=== PATIENT | male | born 1935 | race Caucasian/White ===

== ENCOUNTER 2020-03-01 13:24 | Emergency (ER) | payer MEDICARE, OTHER ==
--- NOTE | 2020-03-01 14:50 | CT ---
PROCEDURE INFORMATION: Exam: CT Cervical Spine Without Contrast Exam date and time: 03/01/2020 2:08 PM Age: 84 years old Clinical indication: Pain and injury or trauma; Fall; Blunt trauma; Neck pain TECHNIQUE: Imaging protocol: Computed tomography images of the cervical spine without contrast. Radiation optimization: All CT scans at this facility use at least one of these dose optimization techniques: automated exposure control; mA and/or kV adjustment per patient size (includes targeted exams where dose is matched to clinical indication); or iterative reconstruction. COMPARISON: No relevant prior studies available. FINDINGS: Bones/joints: There is no evidence of acute fracture. Discs/Spinal canal/Neural foramina: The cervical spine demonstrates moderate degenerative changes at multiple levels. The facet joints demonstrate moderate degenerative narrowing and sclerosis. Disc space narrowing and bilateral neural foraminal narrowing noted at C2-C3, C3-C4 , C4- C5 and C5-C6. Soft tissues: There are no soft tissue masses or fluid collections. Lungs: Lung apices are normal. Vasculature: The vasculature demonstrates diffuse mild atherosclerotic calcification. IMPRESSION: 1. The cervical spine demonstrates moderate degenerative changes at multiple levels. 2. No evidence of acute fracture. Thank you for allowing us to participate in the care of your patient. Dictated and Authenticated by: Victor Manuel Fitch DO 03/01/2020 3:36 PM Central Time ([place] & [place]) [facility]
--- NOTE | 2020-03-01 14:54 | CT ---
Addendum created by Victor Manuel Fitch DO on 03/01/2020 3:43 PM Central Time ([place] & [place]): THIS REPORT CONTAINS FINDINGS THAT MAY BE CRITICAL TO PATIENT CARE. The findings were verbally communicated via telephone conference at 3:42 PM JBOSS DEVELOPER on 03/01/2020 with CLARIBEL BRYAN. The findings were acknowledged and understood. Initial Report created on 03/01/2020 3:34 PM Central Time ([place] & [place]): PROCEDURE INFORMATION: Exam: CT Head Without Contrast Exam date and time: 03/01/2020 2:08 PM Age: 84 years old Clinical indication: Injury or trauma; Fall; Laceration; Consciousness not specified; Without residual foreign body; Forehead; Mass, lump, or localized swelling; Head or scalp TECHNIQUE: Imaging protocol: Computed tomography of the head without contrast. Radiation optimization: All CT scans at this facility use at least one of these dose optimization techniques: automated exposure control; mA and/or kV adjustment per patient size (includes targeted exams where dose is matched to clinical indication); or iterative reconstruction. COMPARISON: CT Head wo Cont 10/31/2018 11:53 AM FINDINGS: Brain: Right temporoparietal subdural hematoma is present measuring up to 5 mm in width. Small right temporoparietal parenchymal hematoma present. Age-related atrophy and chronic white matter ischemic changes, with no evidence of an acute intracranial abnormality. No mass effect or midline shift. 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 Cerebral ventricles: No ventriculomegaly. Bones/joints: There is a fracture of the right inferior orbital rim present. There is a fracture of the right zygomatic arch. Paranasal sinuses: Hyperdense air-fluid level present within the right maxillary sinus with fractures of the anterior and posterior ritter of the sinus present. Mastoid air cells: Visualized mastoid air cells are well aerated. Vasculature: The vasculature demonstrates diffuse mild atherosclerotic calcification. Soft tissues: Moderate right periorbital soft tissue swelling. IMPRESSION: 1. Right temporoparietal subdural hematoma is present measuring up to 5 mm in width. 2. Small right temporoparietal parenchymal hematoma present. 3. There is a fracture of the right inferior orbital rim present. 4. There is a fracture of the right zygomatic arch. 5. Age-related atrophy and chronic white matter ischemic changes, with no evidence of an acute intracranial abnormality. 6. No mass effect or midline shift. 7. Hyperdense air-fluid level present within the right maxillary sinus with fractures of the anterior and posterior ritter of the sinus present. 8. Moderate right periorbital soft tissue swelling. An acute air-fluid levels present within the sphenoid sinuses bilaterally. Thank you for allowing us to participate in the care of your patient. Dictated and Authenticated by: Victor Manuel Fitch DO 03/01/2020 3:34 PM Central Time ([place] & [place]) [facility]
[2020-03-01] MEDS ORDERED: Sodium Chloride 0.9% 10 ML Syringe FLUSH PRN (15:11)
--- NOTE | 2020-03-01 15:57 | CT ---
PROCEDURE INFORMATION: Exam: CT Maxillofacial Without Contrast Exam date and time: 03/01/2020 2:45 PM Age: 84 years old Clinical indication: Injury or trauma; Fracture, traumatic; Closed fracture; Not specified; Injury date: 03/01/2020; Injury details: Fall and right sided facial bone fractures; Patient HX: Fall and right side facial fractures TECHNIQUE: Imaging protocol: Computed tomography images of the face without contrast. Radiation optimization: All CT scans at this facility use at least one of these dose optimization techniques: automated exposure control; mA and/or kV adjustment per patient size (includes targeted exams where dose is matched to clinical indication); or iterative reconstruction. COMPARISON: No relevant prior studies available. FINDINGS: Orbital cavity: Orbits are normal. Globes are unremarkable. Bones/joints: There is an infraorbital fracture noted on the right. No evidence of muscular entrapment. Fractures of the anterior and posterior ritter of the right maxillary sinus present. Slight right to left nasal septal deviation. Fracture of the right lateral orbital wall. Fracture of the right zygomatic arch is present. Paranasal sinuses: There is opacification of the right maxillary sinus with hyperdense fluid, likely related to hemorrhage. Acute air-fluid level present within the left and right sphenoid sinuses. Small air-fluid levels present within the ethmoid air cells. Soft tissues: Right periorbital soft tissue swelling and hematoma present. IMPRESSION: 1. There is an infraorbital fracture noted on the right. No evidence of muscular entrapment. 2. Fractures of the anterior and posterior ritter of the right maxillary sinus present. 3. There is opacification of the right maxillary sinus with hyperdense fluid, likely related to hemorrhage. 4. Right periorbital soft tissue swelling and hematoma present. 5. Fracture of the right zygomatic arch is present. 6. Acute air-fluid level present within the left and right sphenoid sinuses. THIS REPORT CONTAINS FINDINGS THAT MAY BE CRITICAL TO PATIENT CARE. The findings were verbally communicated via telephone conference at 3:42 PM LOCOMOTIVE ENGINEER on 03/01/2020 with CLARIBEL BRYAN. The findings were acknowledged and understood. Thank you for allowing us to participate in the care of your patient. Dictated and Authenticated by: Victor Manuel Fitch DO 03/01/2020 4:16 PM Central Time ([place] & [place]) [facility]
[2020-03-01] MEDS ORDERED: Ondansetron 4 MG/2 ML SDV IVPUSH ONE (16:21)
--- NOTE | 2020-03-01 16:56 | EDM.PDOC ---
ED HPI GENERAL MEDICAL PROBLEM - General Chief Complaint: Head Injury Stated Complaint: [facility] Time Seen by Provider: 03/01/20 13:31 Source of Information: Reports: Patient, EMS, Family History Limitations: Reports: No Limitations - History of Present Illness INITIAL COMMENTS - FREE TEXT/NARRATIVE: The patient presents by [facility] for a fall. The patient missed a couple steps and fell and hit his head on some concrete. He did not have a LOC but he does not remember what happened. He has swelling to his right orbit and an abrasion. He has a headache. His is in full c-spine precautions with a c- collar and back board. He has no neck pain. He has no chest pain, shortness of breath, abdominal pain, fever, chills, cough, congestion, runny nose, numbness or weakness. The patient is on aspirin and no other blood thinner. Onset: Sudden Duration: Minutes: Location: Reports: Head Quality: Reports: Sharp Severity: Moderate Improves with: Reports: None Worsens with: Reports: None Associated Symptoms: Reports: Headaches. Denies: Chest Pain, Cough, Fever/Chills, Nausea/Vomiting, Shortness of Breath Headache Pain Score (Numeric/FACES): 3 - Related Data Allergies Allergy/AdvReac Type Severity Reaction Status Date / Time No Known Allergies Allergy Verified 03/01/20 13:34 Home Meds: Home Meds Aspirin 81 mg PO DAILY 10/31/18 [History] Fish Oil/[place]-3 Fatty Acids [Fish Oil 1,000 MG] 1,000 mg PO DAILY 10/31/18 [History] Gabapentin [Neurontin] 300 mg PO DAILY 10/31/18 [History] Magnesium Chloride [Slow-Mag] 71.5 mg PO DAILY #30 tablet.dr 10/31/18 [Rx] Metoprolol Tartrate 50 mg PO BID 10/31/18 [History] Multivitamin with Minerals [Multiple Vitamin] 1 tab PO DAILY 10/31/18 [History] Omeprazole 20 mg PO DAILY 10/31/18 [History] Potassium Chloride 20 meq PO DAILY 30 Days #30 tablet.er 10/31/18 [Rx] Simvastatin 5 mg PO BEDTIME 10/31/18 [History] carBAMazepine [Carbamazepine] 200 mg PO DAILY PRN 10/31/18 [History] hydroCHLOROthiazide [Hydrochlorothiazide] 25 mg PO DAILY 10/31/18 [History] Past Medical History HEENT History: Reports: Impaired Vision Cardiovascular History: Reports: High Cholesterol, Hypertension Gastrointestinal History: Reports: GERD, Other (See Below) Musculoskeletal History: Reports: Osteoarthritis Oncologic (Cancer) History: Reports: Colon - Past Surgical History GI Surgical History: Reports: Cholecystectomy, Colostomy Social & Family History - Tobacco Use Tobacco Use Status *Q: Never Tobacco User - Caffeine Use Caffeine Use: Reports: None - Recreational Drug Use Recreational Drug Use: No - Living Situation & Occupation Living situation: Reports: Occupation: Retired ED ROS GENERAL - Review of Systems Review Of Systems: See Below Constitutional: Reports: No Symptoms HEENT: Reports: No Symptoms Respiratory: Reports: No Symptoms Cardiovascular: Reports: No Symptoms Endocrine: Reports: No Symptoms GI/Abdominal: Reports: No Symptoms : Reports: No Symptoms Musculoskeletal: Reports: No Symptoms Neurological: Reports: Headache ED EXAM, HEAD INJURY - Physical Exam Exam: See Below Exam Limited By: No Limitations General Appearance: Alert, No Apparent Distress Head: Other (Edema to the right orbital rim with an abrasion) Eyes: Bilateral Eye: EOMI Ears: Normal External Exam Nose: Normal Inspection Throat/Mouth: Normal Inspection Neck: Non-Tender, Normal Alignment, Normal Inspection Respiratory: No Respiratory Distress, Lungs Clear, Normal Breath Sounds Cardiovascular: Regular Rate, Rhythm, No Edema, No Murmur GI/Abdominal Exam: Soft, Non-Tender, No Organomegaly, No Mass Back Exam: Normal Inspection Extremities: Normal Inspection Course - Vital Signs Last Recorded V/S: Last Vital Signs Temp 96.8 F L 03/01/20 13:29 Pulse 71 03/01/20 16:19 Resp 18 03/01/20 13:29 BP 178/94 H 03/01/20 16:19 Pulse Ox 100 03/01/20 16:19 - Orders/Labs/Meds Orders: Active Orders 24 hr Category Date Time Status Cardiac Monitoring [RC] . DIRECTED Care 03/01/20 15:11 Active Peripheral IV Care [RC] . DIRECTED Care 03/01/20 15:11 Active Sodium Chloride 0.9% [Saline Flush] Med 03/01/20 15:11 Active 10 ml FLUSH ASDIRECTED PRN Tranexamic Acid [Cyklokapron] 1,000 mg Med 03/01/20 17:30 Active Sodium Chloride 0.9% [Normal Saline] 100 ml IV ONETIME Peripheral IV Insertion Adult [OM.PC] Stat Oth 03/01/20 15:11 Ordered Medication Orders Tranexamic Acid 1,000 mg/ (Sodium Chloride) 110 mls @ 400 mls/hr IV ONETIME UDAY Last Admin: 03/01/20 17:52 Dose: 400 mls/hr Documented by: DELROY Sodium Chloride (Saline Flush) 10 ml FLUSH ASDIRECTED PRN PRN Reason: Keep Vein Open Last Admin: 03/01/20 16:15 Dose: 10 ml Documented by: DELROY Labs: Laboratory Tests 03/01/20 03/01/20 03/01/20 Range/Units 15:31 15:31 15:31 WBC 7.18 (4.23-9.07) K/mm3 RBC 4.93 (4.63-6.08) M/mm3 Hgb 15.7 (13.7-17.5) gm/dl Hct 45.4 (40.1-51.0) % MCV 92.1 (79.0-92.2) fl MCH 31.8 (25.7-32.2) pg MCHC 34.6 (32.2-35.5) g/dl RDW Std Deviation 41.7 (35.1-43.9) fL Plt Count 112 L (163-337) K/mm3 MPV 11.9 (9.4-12.3) fl Neut % (Auto) 61.7 (34.0-67.9) % Lymph % (Auto) 28.3 (21.8-53.1) % [place] % (Auto) 8.1 (5.3-12.2) % Eos % (Auto) 0.8 (0.8-7.0) Baso % (Auto) 0.4 (0.1-1.2) % Neut # (Auto) 4.43 (1.78-5.38) K/mm3 Lymph # (Auto) 2.03 (1.32-3.57) K/mm3 [place] # (Auto) 0.58 (0.30-0.82) K/mm3 Eos # (Auto) 0.06 (0.04-0.54) K/mm3 Baso # (Auto) 0.03 (0.01-0.08) K/mm3 PT 11.6 (9.7-12.0) SECONDS INR 1.09 APTT 27.6 (21.7-31.4) SECONDS Sodium 137 (136-145) mEq/L Potassium 3.0 L (3.5-5.1) mEq/L Chloride 99 (98-107) mEq/L Carbon Dioxide 27 (21-32) mEq/L Anion Gap 14.0 (5-15) BUN 19 H (7-18) mg/dL Creatinine 1.1 (0.7-1.3) mg/dL Est Cr Clr Drug Dosing 49.77 mL/min Estimated GFR (MDRD) > 60 (>60) mL/min BUN/Creatinine Ratio 17.3 (14-18) Glucose 146 H (83-115) mg/dL Calcium 8.7 (8.5-10.1) mg/dL Total Bilirubin 1.1 H (0.2-1.0) mg/dL AST 58 H (15-37) U/L ALT 52 (16-63) U/L Alkaline Phosphatase 86 (46-116) U/L Total Protein 6.8 (6.4-8.2) g/dl Albumin 3.3 L (3.4-5.0) g/dl Globulin 3.5 gm/dL Albumin/Globulin Ratio 0.9 L (1-2) SARS-CoV-2 RNA ([place]) (NEGATIVE) 03/01/20 Range/Units 15:39 WBC (4.23-9.07) K/mm3 RBC (4.63-6.08) M/mm3 Hgb (13.7-17.5) gm/dl Hct (40.1-51.0) % MCV (79.0-92.2) fl MCH (25.7-32.2) pg MCHC (32.2-35.5) g/dl RDW Std Deviation (35.1-43.9) fL Plt Count (163-337) K/mm3 MPV (9.4-12.3) fl Neut % (Auto) (34.0-67.9) % Lymph % (Auto) (21.8-53.1) % [place] % (Auto) (5.3-12.2) % Eos % (Auto) (0.8-7.0) Baso % (Auto) (0.1-1.2) % Neut # (Auto) (1.78-5.38) K/mm3 Lymph # (Auto) (1.32-3.57) K/mm3 [place] # (Auto) (0.30-0.82) K/mm3 Eos # (Auto) (0.04-0.54) K/mm3 Baso # (Auto) (0.01-0.08) K/mm3 PT (9.7-12.0) SECONDS INR APTT (21.7-31.4) SECONDS Sodium (136-145) mEq/L Potassium (3.5-5.1) mEq/L Chloride (98-107) mEq/L Carbon Dioxide (21-32) mEq/L Anion Gap (5-15) BUN (7-18) mg/dL Creatinine (0.7-1.3) mg/dL Est Cr Clr Drug Dosing mL/min Estimated GFR (MDRD) (>60) mL/min BUN/Creatinine Ratio (14-18) Glucose (83-115) mg/dL Calcium (8.5-10.1) mg/dL Total Bilirubin (0.2-1.0) mg/dL AST (15-37) U/L ALT (16-63) U/L Alkaline Phosphatase (46-116) U/L Total Protein (6.4-8.2) g/dl Albumin (3.4-5.0) g/dl Globulin gm/dL Albumin/Globulin Ratio (1-2) SARS-CoV-2 RNA ([place]) Positive H (NEGATIVE) Meds: Medications Generic Name Dose Route Start Last Admin Trade Name Freq PRN Reason Stop Dose Admin Tranexamic Acid 1,000 mg/ 110 mls @ 400 mls/hr 03/01/20 17:30 03/01/20 17:52 Sodium Chloride IV 400 mls/hr ONETIME UDAY Administration Sodium Chloride 10 ml 03/01/20 15:11 03/01/20 16:15 Saline Flush FLUSH 10 ml ASDIRECTED PRN Administration Keep Vein Open Discontinued Medications Generic Name Dose Route Start Last Admin Trade Name Freq PRN Reason Stop Dose Admin Levetiracetam 500 mg/ Sodium 105 mls @ 400 mls/hr 03/01/20 17:17 03/01/20 17:33 Chloride IV 03/01/20 17:31 400 mls/hr ONETIME ONE Administration Labetalol HCl 10 mg 03/01/20 17:07 03/01/20 17:20 Normodyne IVPUSH 03/01/20 17:08 10 mg ONETIME ONE Administration Protocol Labetalol HCl 20 mg 03/01/20 17:18 03/01/20 17:21 Normodyne IVPUSH 03/01/20 17:19 20 mg ONETIME ONE Administration Protocol Metoclopramide HCl 10 mg 03/01/20 17:35 03/01/20 17:53 Reglan IVPUSH 03/01/20 17:36 10 mg ONETIME ONE Administration Ondansetron HCl 4 mg 03/01/20 16:21 03/01/20 16:25 Zofran IVPUSH 03/01/20 16:22 4 mg ONETIME ONE Administration Tranexamic Acid 1,000 mg 03/01/20 17:16 03/01/20 17:31 Cyklokapron IVPUSH 03/01/20 17:17 1,000 mg ONETIME ONE Administration - Re-Assessments/Exams Free Text/Narrative Re-Assessment/Exam: 03/01/20 17:49 The patient was in a c-collar and back board. My team and I removed him from the backboard. He had a headache and facial pain. I got a CT of his head, cervical spine and maxillofacial bones. The CT of his head shows right temporoparietal subdural hematoma is present measuring up to 5mm in width. Small right temporoparietal parenchymal hematoma present. There is a fracture of the right inferior orbital rim present. There is a fracture of the right zygomatic arch. Age related atrophy and chronic white matter ischemic changes, within no evidence of an acute intracranial abnormality. No mass effect or midline shift. Hyperdense air-fluid level present within the right maxillary sinus with fractures of the anterior and posterior ritter of the sinus present. Moderate right periorbital soft tissue swelling. An acute air fluid levels present within the sphenoid sinuses bilaterally. The CT of his cervical spine shows the cervical spine demonstrates moderate degenerative changes at multiple levels. No evidence of acute fracture. The CT of his maxillofacial bones shows an infraorbital fracture noted on the right. No evidence of muscular entrapment. Fractures of the anterior and posterior ritter of the right maxillary sinus present. There is opacification of the right maxillary sinus with hyperdense fluid, likely related to hemorrhage. Right periorbital soft tissue swelling and hematoma present. Fracture of the right zygomatic arch is present. Acute air-fluid level present within the left and right sphenoid sinuses. His CBC looks good. His PT and PTT were normal. His K was low at 3. His glucose was 148. His total bili was 1.1. His AST was elevated at 58. He had some nausea and vomiting so I ordered some zofran. I called both [facility] and they were full. I called [facility] in [place] and talked with the ER doctor Dr Blancas and he accepted the patient. I also talked with the neurosurgeon and he wanted TXA bolus and then a drip, keppra 500mg IV, and labetalol to keep his blood pressure below 160. Departure - Departure Time of Disposition: 18:50 Disposition: DC/Tfer to Acute Hospital 02 Condition: Serious Clinical Impression: Subdural hematoma Fall Qualifiers: Encounter type: initial encounter Qualified Code(s): W19.XXXA - Unspecified fall, initial encounter Facial bone fracture Qualifiers: Encounter type: initial encounter Facial bone/location: zygomatic arch Fracture type: closed Laterality: right Qualified Code(s): S02.40EA - Zygomatic fracture, right side, initial encounter for closed fracture - Discharge Information Referrals: Ricardo Orozco NP [Primary Care Provider] - Forms: ED Department Discharge Sepsis Event Note (ED) - Evaluation Sepsis Screening Result: No Definite Risk - Focused Exam Vital Signs: Vital Signs Temp Pulse Resp BP Pulse Ox 03/01/20 16:19 71 178/94 H 100 03/01/20 13:29 96.8 F L 71 18 141/88 H 95 - My Orders Last 24 Hours: My Active Orders 03/01/20 15:11 Cardiac Monitoring [RC] . DIRECTED Peripheral IV Care [RC] . DIRECTED Sodium Chloride 0.9% [Saline Flush] 10 ml FLUSH ASDIRECTED PRN Peripheral IV Insertion Adult [OM.PC] Stat 03/01/20 17:30 Tranexamic Acid [Cyklokapron] 1,000 mg Sodium Chloride 0.9% [Normal Saline] 100 ml IV ONETIME - Assessment/Plan Last 24 Hours: My Active Orders 03/01/20 15:11 Cardiac Monitoring [RC] . DIRECTED Peripheral IV Care [RC] . DIRECTED Sodium Chloride 0.9% [Saline Flush] 10 ml FLUSH ASDIRECTED PRN Peripheral IV Insertion Adult [OM.PC] Stat 03/01/20 17:30 Tranexamic Acid [Cyklokapron] 1,000 mg Sodium Chloride 0.9% [Normal Saline] 100 ml IV ONETIME
[2020-03-01] MEDS ORDERED: Labetalol 100 MG/20 ML MDV IVPUSH ONE ×2 (17:07→17:18)
[2020-03-01] MEDS ORDERED: levETIRAcetam 500 MG in Sodium Chloride 0.9% 100 ML IV ONE (17:17)
[2020-03-01] MEDS ORDERED: Tranexamic Acid 1,000 MG in Sodium Chloride 0.9% 100 ML IV SCH (17:30)
[2020-03-01] MEDS ORDERED: Metoclopramide 10 MG/2 ML SDV IVPUSH ONE (17:35)
== END 2020-03-01 17:55 ==
LOC: JD.ED 13:24
DX: S06.5X0A Traumatic subdural hemorrhage without loss of consciousness, initial encounter (principal); S02.40EA Zygomatic fracture, right side, initial encounter for closed fracture; E78.00 Pure hypercholesterolemia, unspecified; I10 Essential (primary) hypertension; K21.9 Gastro-esophageal reflux disease without esophagitis; M19.90 Unspecified osteoarthritis, unspecified site; Z79.82 Long term (current) use of aspirin; Z79.899 Other long term (current) drug therapy; Z20.828 Contact with and (suspected) exposure to other viral communicable diseases; W10.9XXA Fall (on) (from) unspecified stairs and steps, initial encounter
CPT/HCPCS: 36415; 70450; 70486; 72125; 80053; 85025; 85610; 85730; 96365; 96375; 99285; J1953; J2405; J2765; J3490; U0002

== ENCOUNTER 2020-03-08 08:55 | Emergency (ER) | payer MEDICARE, OTHER ==
--- NOTE | 2020-03-08 09:25 | EDM.PDOC ---
ED HPI GENERAL MEDICAL PROBLEM - General Chief Complaint: Gastrointestinal Problem Stated Complaint: [facility] Time Seen by Provider: 03/08/20 09:06 Source of Information: Reports: Patient History Limitations: Reports: No Limitations - History of Present Illness INITIAL COMMENTS - FREE TEXT/NARRATIVE: 85-year-old male presents to the ED for evaluation of generalized weakness. Mild paroxysmal cough. Found to be Covid positive on testing while in hospital in [facility] last week. Patient was seen through the ED 1 week ago March 01 after falling down some stairs at home hitting his head hard on concrete surface. Patient suffered a right temporoparietal subdural hematoma measuring 5 mm in thickness. He suffered fractures of the right maxillary sinus and floor of the orbit and zygomatic process fractures on the right side. He was a trauma alert. CT spine revealed no fractures but diffuse degenerative changes. Maxillofacial bones showed an infraorbital fracture on the right side no evidence of muscular entrapment fractures of the anterior and posterior ritter of the right maxillary sinus as well. Opacification of the right maxillary sinus with hyperdense fluid filled with blood. Right periorbital soft tissue swelling and hematoma present acute air-fluid level present within the left and right sphenoid sinuses. Patient received TXA 1 g IV and was started on Keppra 500 mg IV to prevent seizures. He was flown to [place] in [place] for definitive care by neurosurgery. Is unclear when he was released from the hospital. Apparently identified to be Covid positive while in the hospital. He presents to the ED this morning due to generalized weakness and severe anorexia. [place] clinically to be dehydrated. He is alert and does answer questions appropriately. He does remember when he got out of hospital in [place]. Sounds like perhaps Mar.05. Patient denies any headache at this time. No nausea or vomiting. Onset Date: 03/01/20 (And fell down concrete stairs a week ago and was seen through our ED as a trauma alert. He had suffered injuries to his right hemiface with zygomatic fractures and fractures of the right maxillary sinus both posteriorly and anteriorly and in the floor of the orbit. He suffered contusion and injury to his right upper extremity. He was found to have a 5 mm thick right temporoparietal subdural hematoma from trauma. Diagnosed with COVID-19 while he was in the hospital in [place].) Duration: Day(s):, Getting Worse Location: Reports: Face (Right upper eyelid edema and ecchymosis resolving i.e. yellow in color.), Upper Extremity, Left (Contusion right upper extremity.) Quality: Reports: Other (Lysed weakness. Loss of appetite.) Severity: Moderate Improves with: Reports: None Worsens with: Reports: Other Context: Reports: Trauma (Recent trauma as described above 1 week ago.). Denies: Activity (Movement makes him much worse.), Exercise, Lifting, Sick Contact Associated Symptoms: Reports: Cough, cough w sputum, Diaphoresis, Fever/Chills, Headaches, Loss of Appetite, Malaise, Shortness of Breath, Weakness. Denies: Confusion, Chest Pain, Nausea/Vomiting, Rash, Seizure, Syncope Treatments [employer]: Reports: Acetaminophen - Related Data Allergies Allergy/AdvReac Type Severity Reaction Status Date / Time No Known Allergies Allergy Verified 03/08/20 09:18 Home Meds: Home Meds Aspirin 81 mg PO DAILY 10/31/18 [History] Fish Oil/[place]-3 Fatty Acids [Fish Oil 1,000 MG] 1,000 mg PO DAILY 10/31/18 [History] Gabapentin [Neurontin] 300 mg PO DAILY 10/31/18 [History] Magnesium Chloride [Slow-Mag] 71.5 mg PO DAILY #30 tablet. 10/31/18 [Rx] Metoprolol Tartrate 50 mg PO BID 10/31/18 [History] Multivitamin with Minerals [Multiple Vitamin] 1 tab PO DAILY 10/31/18 [History] Omeprazole 20 mg PO DAILY 10/31/18 [History] Potassium Chloride 20 meq PO DAILY 30 Days #30 tablet.er 10/31/18 [Rx] Simvastatin 5 mg PO BEDTIME 10/31/18 [History] carBAMazepine [Carbamazepine] 200 mg PO DAILY PRN 10/31/18 [History] hydroCHLOROthiazide [Hydrochlorothiazide] 25 mg PO DAILY 10/31/18 [History] Potassium Chloride 20 meq PO DAILY #12 tablet.er 03/08/20 [Rx] Past Medical History HEENT History: Reports: Impaired Vision Cardiovascular History: Reports: Afib (History of paroxysmal atrial fibrillation. He is on Xarelto 20 mg once daily), High Cholesterol, Hypertension Gastrointestinal History: Reports: GERD, Other (See Below) Musculoskeletal History: Reports: Osteoarthritis Oncologic (Cancer) History: Reports: Colon - Past Surgical History GI Surgical History: Reports: Cholecystectomy, Colostomy Social & Family History - Caffeine Use Caffeine Use: Reports: None - Living Situation & Occupation Living situation: Reports: Occupation: Retired ED ROS GENERAL - Review of Systems Review Of Systems: See Below Constitutional: Reports: Fever, Chills, Malaise, Weakness, Fatigue, Decreased Appetite, Weight Loss HEENT: Reports: Other (Fell 1 week ago suffering traumatic injuries to the right hemiface including a zygoma fracture and fracture of the floor of the right orbit posterior and anterior wall of the right maxillary sinus. No intraocular muscle entrapment. Denies any visual acuity changes right eye. Right eye remains partially closed due to swelling and significant injection of both medial and lateral conjunctiva evident.) Respiratory: Reports: Shortness of Breath, Cough. Denies: Wheezing, Pleuritic Chest Pain, Sputum, Hemoptysis Cardiovascular: Reports: Blood Pressure Problem, Dyspnea on Exertion, Lightheadedness. Denies: Chest Pain, Claudication (Chronic hypertension.), [place], Orthopnea, Palpitations Endocrine: Reports: Fatigue GI/Abdominal: Reports: Decreased Appetite, Other (Generalized weakness) : Reports: Frequency, Other (Nocturia x3) Musculoskeletal: Reports: Neck Pain, Shoulder Pain, Arm Pain, Back Pain (Contusion right upper arm from his fall a week ago. Chronic low back pain) Skin: Reports: Bruising (Ecchymoses right hemiface and right upper eyelid. Ecchymoses right upper arm from shoulder to elbow.) Neurological: Reports: No Symptoms, Difficulty Walking, Weakness. Denies: Confusion, Dizziness, Headache, Numbness, Seizure, Syncope, Tingling, Trouble Speaking Psychiatric: Reports: No Symptoms Hematologic/Lymphatic: Reports: No Symptoms Immunologic: Reports: No Symptoms ED EXAM, GENERAL - Physical Exam Exam: See Below Exam Limited By: No Limitations General Appearance: Alert, WD/WN, No Apparent Distress, Other (Temperature is 35.8. Heart rate was 70. Respiratory of 18 with O2 sats of 100%. Initial blood pressure elevated 178/83 but subsequently improved to 155/76.) Eye Exam: Right Eye: Conjunctival Injection (Patient has significant conjunctival injection both medial and lateral right conjunctiva due to resolving subconjunctival hematoma. The cornea is clear.), Bilateral Eye: PERRL (No evidence of intraocular muscle entrapment.) Ears: Normal TMs Throat/Mouth: Normal Lips, Normal Oropharynx, Other (Tongue is mildly dry and coated and shrunken.) Head: Other (Evidence of right hemifacial trauma with ecchymoses particularly periorbitally on the right side. Still has some residual swelling of the right upper eyelid with partial eye closure. Apparently has a fracture through the right zygomatic process without significant displacement. Apparently he suffered multiple fractures to the posterior anterior and floor of the right orbit. Known to have a maxillary sinus full of blood on CT a week ago.) Neck: Limited Range of Motion. No: Lymphadenopathy (L), Lymphadenopathy (R) Respiratory/Chest: No Respiratory Distress, Decreased Breath Sounds (Decreased air entry to the lower portions of bilateral lungs right side.). No: Rales, R honchi, Wheezing Cardiovascular: Regular Rate, Rhythm, No Edema, No Gallop, No Murmur, No Rub. No: Normal Peripheral Pulses Peripheral Pulses: 1+: Posterior Tibial (L), Posterior Tibial (R), Dorsalis Pedis (L), Dorsalis Pedis (R), 2+: Carotid (L), Carotid (R) GI/Abdominal: Normal Bowel Sounds, Soft, Non-Tender, No Organomegaly, No Mass, Pelvis Stable Back Exam: No: Full Range of Motion (Patient has difficulty sitting up on his own due to back pain), CVA Tenderness (L) ( and weakness.), CVA Tenderness (R) Extremities: Other (Patient has marked ecchymoses right lateral arm from shoulder to elbow due to resolving hematoma of the shoulder. He had limited ability to forward flex or abduct the right arm concerning for possible rotator cuff injury. Apparently no fractures in his right upper extremity were identified.). No: Normal Range of Motion (Patient has evidence of osteoarthritic changes both knees with both hips and poor internal/external rotation of both hips..) Neurological: Alert, Oriented, CN II-XII Intact, Normal Cognition Psychiatric: Normal Affect, Normal Mood Skin Exam: Warm, Dry, Intact, Ecchymosis (Scribed above.) #1 Interpretation EKG Date: 03/08/20 Time: 09:47 Rhythm: Other (Ectopic atrial rhythm) Rate (Beats/Min): 68 [place]: LAD-Left [place] Deviation (-37 degrees) P-Wave: Present (With first-degree AV block) QRS: Other (Tall R wave in lead I suggesting mild left ventricular perjury. 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 Nonspecific finding) QT: Prolonged (Mildly prolonged) Course - Vital Signs Last Recorded V/S: Last Vital Signs Temp 35.8 C L 03/08/20 09:00 Pulse 70 03/08/20 09:00 Resp 18 03/08/20 09:00 BP 178/83 H 03/08/20 09:00 Pulse Ox 100 03/08/20 09:00 - Orders/Labs/Meds Orders: Active Orders 24 hr Category Date Time Status EKG Documentation Completion [RC] STAT Care 03/08/20 09:17 Active CULTURE BLOOD [BC] Stat Lab 03/08/20 09:52 Received CULTURE BLOOD [BC] Stat Lab 03/08/20 10:05 Received Dextrose 5%-Lactated Ringers 1,000 ml Med 03/08/20 09:30 Active IV ASDIRECTED Blood Culture x2 Reflex Set [OM.PC] Stat Oth 03/08/20 09:23 Ordered Blood Culture x2 Reflex Set [OM.PC] Stat Oth 03/08/20 09:24 Ordered Medication Orders Dextrose/Lactated Ringer's (Dextrose 5%-Lactated Ringers) 1,000 mls @ 125 mls/hr IV ASDIRECTED UDAY Last Admin: 03/08/20 11:02 Dose: 125 mls/hr Documented by: ROWENA Labs: Laboratory Tests 03/08/20 03/08/20 03/08/20 Range/Units 09:52 09:52 09:52 WBC 6.13 (4.23-9.07) K/mm3 RBC 4.42 L (4.63-6.08) M/mm3 Hgb 14.3 (13.7-17.5) gm/dl Hct 39.9 L (40.1-51.0) % MCV 90.3 (79.0-92.2) fl MCH 32.4 H (25.7-32.2) pg MCHC 35.8 H (32.2-35.5) g/dl RDW Std Deviation 40.9 (35.1-43.9) fL Plt Count 128 L (163-337) K/mm3 MPV 11.6 (9.4-12.3) fl Neut % (Auto) 49.5 (34.0-67.9) % Lymph % (Auto) 35.2 (21.8-53.1) % [place] % (Auto) 12.9 H (5.3-12.2) % Eos % (Auto) 2.1 (0.8-7.0) Baso % (Auto) 0.3 (0.1-1.2) % Neut # (Auto) 3.03 (1.78-5.38) K/mm3 Lymph # (Auto) 2.16 (1.32-3.57) K/mm3 [place] # (Auto) 0.79 (0.30-0.82) K/mm3 Eos # (Auto) 0.13 (0.04-0.54) K/mm3 Baso # (Auto) 0.02 (0.01-0.08) K/mm3 Manual Slide Review Normal smear ESR (0-15) mm/hr PT 12.7 H (9.7-12.0) SECONDS INR 1.19 APTT 27.2 (21.7-31.4) SECONDS Sodium 139 (136-145) mEq/L Potassium 3.1 L (3.5-5.1) mEq/L Chloride 101 (98-107) mEq/L Carbon Dioxide 26 (21-32) mEq/L Anion Gap 15.1 H (5-15) BUN 17 (7-18) mg/dL Creatinine 0.8 (0.7-1.3) mg/dL Est Cr Clr Drug Dosing 67.17 mL/min Estimated GFR (MDRD) > 60 (>60) mL/min BUN/Creatinine Ratio 21.3 H (14-18) Glucose 102 (83-115) mg/dL Lactic Acid (0.4-2.0) mmol/L Calcium 8.6 (8.5-10.1) mg/dL Magnesium (1.8-2.4) mg/dl Ferritin (26-388) ng/ml Total Bilirubin 1.9 H (0.2-1.0) mg/dL AST 39 H (15-37) U/L ALT 42 (16-63) U/L Alkaline Phosphatase 74 (46-116) U/L Lactate Dehydrogenase (85-227) U/L Troponin I < 0.017 (0.00-0.056) ng/mL C-Reactive Protein 0.3 (<1.0) mg/dL NT-Pro-B Natriuret Pep (0-450) pg/mL Total Protein 6.4 (6.4-8.2) g/dl Albumin 3.1 L (3.4-5.0) g/dl Globulin 3.3 gm/dL Albumin/Globulin Ratio 0.9 L (1-2) Urine Color (Yellow) Urine Appearance (Clear) Urine pH (5.0-8.0) Ur Specific [place] (1.005-1.030) Urine Protein (Negative) Urine Glucose (UA) (Negative) Urine Ketones (Negative) Urine Occult Blood (Negative) Urine Nitrite (Negative) Urine Bilirubin (Negative) Urine Urobilinogen (0.2-1.0) Ur Leukocyte Esterase (Negative) U Hyaline Cast (Auto) (0-5) /lpf Urine RBC (0-5) /hpf Urine WBC (0-5) /hpf Ur Squamous Epith Cells (0-5) /hpf Urine Bacteria (FEW) /hpf Urine Mucus (FEW) /hpf 03/08/20 03/08/20 03/08/20 Range/Units 09:52 09:52 09:52 WBC (4.23-9.07) K/mm3 RBC (4.63-6.08) M/mm3 Hgb (13.7-17.5) gm/dl Hct (40.1-51.0) % MCV (79.0-92.2) fl MCH (25.7-32.2) pg MCHC (32.2-35.5) g/dl RDW Std Deviation (35.1-43.9) fL Plt Count (163-337) K/mm3 MPV (9.4-12.3) fl Neut % (Auto) (34.0-67.9) % Lymph % (Auto) (21.8-53.1) % [place] % (Auto) (5.3-12.2) % Eos % (Auto) (0.8-7.0) Baso % (Auto) (0.1-1.2) % Neut # (Auto) (1.78-5.38) K/mm3 Lymph # (Auto) (1.32-3.57) K/mm3 [place] # (Auto) (0.30-0.82) K/mm3 Eos # (Auto) (0.04-0.54) K/mm3 Baso # (Auto) (0.01-0.08) K/mm3 Manual Slide Review ESR 11 (0-15) mm/hr PT (9.7-12.0) SECONDS INR APTT (21.7-31.4) SECONDS Sodium (136-145) mEq/L Potassium (3.5-5.1) mEq/L Chloride (98-107) mEq/L Carbon Dioxide (21-32) mEq/L Anion Gap (5-15) BUN (7-18) mg/dL Creatinine (0.7-1.3) mg/dL Est Cr Clr Drug Dosing mL/min Estimated GFR (MDRD) (>60) mL/min BUN/Creatinine Ratio (14-18) Glucose (83-115) mg/dL Lactic Acid 1.6 (0.4-2.0) mmol/L Calcium (8.5-10.1) mg/dL Magnesium 1.9 (1.8-2.4) mg/dl Ferritin (26-388) ng/ml Total Bilirubin (0.2-1.0) mg/dL AST (15-37) U/L ALT (16-63) U/L Alkaline Phosphatase (46-116) U/L Lactate Dehydrogenase 208 (85-227) U/L Troponin I (0.00-0.056) ng/mL C-Reactive Protein (<1.0) mg/dL NT-Pro-B Natriuret Pep (0-450) pg/mL Total Protein (6.4-8.2) g/dl Albumin (3.4-5.0) g/dl Globulin gm/dL Albumin/Globulin Ratio (1-2) Urine Color (Yellow) Urine Appearance (Clear) Urine pH (5.0-8.0) Ur Specific [place] (1.005-1.030) Urine Protein (Negative) Urine Glucose (UA) (Negative) Urine Ketones (Negative) Urine Occult Blood (Negative) Urine Nitrite (Negative) Urine Bilirubin (Negative) Urine Urobilinogen (0.2-1.0) Ur Leukocyte Esterase (Negative) U Hyaline Cast (Auto) (0-5) /lpf Urine RBC (0-5) /hpf Urine WBC (0-5) /hpf Ur Squamous Epith Cells (0-5) /hpf Urine Bacteria (FEW) /hpf Urine Mucus (FEW) /hpf 03/08/20 03/08/20 03/08/20 Range/Units 09:52 09:52 12:00 WBC (4.23-9.07) K/mm3 RBC (4.63-6.08) M/mm3 Hgb (13.7-17.5) gm/dl Hct (40.1-51.0) % MCV (79.0-92.2) fl MCH (25.7-32.2) pg MCHC (32.2-35.5) g/dl RDW Std Deviation (35.1-43.9) fL Plt Count (163-337) K/mm3 MPV (9.4-12.3) fl Neut % (Auto) (34.0-67.9) % Lymph % (Auto) (21.8-53.1) % [place] % (Auto) (5.3-12.2) % Eos % (Auto) (0.8-7.0) Baso % (Auto) (0.1-1.2) % Neut # (Auto) (1.78-5.38) K/mm3 Lymph # (Auto) (1.32-3.57) K/mm3 [place] # (Auto) (0.30-0.82) K/mm3 Eos # (Auto) (0.04-0.54) K/mm3 Baso # (Auto) (0.01-0.08) K/mm3 Manual Slide Review ESR (0-15) mm/hr PT (9.7-12.0) SECONDS INR APTT (21.7-31.4) SECONDS Sodium (136-145) mEq/L Potassium (3.5-5.1) mEq/L Chloride (98-107) mEq/L Carbon Dioxide (21-32) mEq/L Anion Gap (5-15) BUN (7-18) mg/dL Creatinine (0.7-1.3) mg/dL Est Cr Clr Drug Dosing mL/min Estimated GFR (MDRD) (>60) mL/min BUN/Creatinine Ratio (14-18) Glucose (83-115) mg/dL Lactic Acid (0.4-2.0) mmol/L Calcium (8.5-10.1) mg/dL Magnesium (1.8-2.4) mg/dl Ferritin 809 H (26-388) ng/ml Total Bilirubin (0.2-1.0) mg/dL AST (15-37) U/L ALT (16-63) U/L Alkaline Phosphatase (46-116) U/L Lactate Dehydrogenase (85-227) U/L Troponin I (0.00-0.056) ng/mL C-Reactive Protein (<1.0) mg/dL NT-Pro-B Natriuret Pep 271 (0-450) pg/mL Total Protein (6.4-8.2) g/dl Albumin (3.4-5.0) g/dl Globulin gm/dL Albumin/Globulin Ratio (1-2) Urine Color Yellow (Yellow) Urine Appearance Clear (Clear) Urine pH 7.0 (5.0-8.0) Ur Specific [place] 1.020 (1.005-1.030) Urine Protein Negative (Negative) Urine Glucose (UA) Negative (Negative) Urine Ketones Trace H (Negative) Urine Occult Blood Negative (Negative) Urine Nitrite Negative (Negative) Urine Bilirubin Negative (Negative) Urine Urobilinogen 2.0 H (0.2-1.0) Ur Leukocyte Esterase Negative (Negative) U Hyaline Cast (Auto) 0-5 (0-5) /lpf Urine RBC 0-5 (0-5) /hpf Urine WBC 0-5 (0-5) /hpf Ur Squamous Epith Cells 0-5 (0-5) /hpf Urine Bacteria Few (FEW) /hpf Urine Mucus Not seen (FEW) /hpf Meds: Medications Generic Name Dose Route Start Last Admin Trade Name Freq PRN Reason Stop Dose Admin Dextrose/Lactated Ringer's 1,000 mls @ 125 mls/hr 03/08/20 09:30 03/08/20 11:02 Dextrose 5%-Lactated Ringers IV 125 mls/hr ASDIRECTED UDAY Administration Discontinued Medications Generic Name Dose Route Start Last Admin Trade Name Freq PRN Reason Stop Dose Admin Potassium Chloride 20 meq 03/08/20 13:26 03/08/20 13:46 Klor-Con M20 PO 03/08/20 13:27 20 meq ONETIME ONE Administration - Radiology Interpretation Free Text/Narrative:: 85-year-old male presents to the ED due to generalized weakness and sense of volume depletion. Patient suffered significant trauma 1 week ago after falling down concrete stairs. He suffered a right temporoparietal subdural hematoma 5 mm in thickness with no midline shift. Suffered multiple right hemifacial fractures including the zygomatic process. Anterior posterior wall of right maxillary sinus and floor of the orbit fracture. These were treated conservatively. Patient was flown to [facility] in [place] for neurological evaluation and management. He did not require drainage of the subdural. Neurosurgery requested TXA be given before he patient was transferred and he did receive 1 g at that time. Subsequently he was on Keppra 500 mg as well to prevent seizures. To my knowledge he has not experienced any seizures. Apparently diagnosed with COVID-19 illness while in the hospital in [place]. At present he is not coughing that badly and his O2 sats are maintained on room air. Decreased air entry to the lower lung fan bilaterally. Tongue is dry and severely coated. Does appear volume depleted. He is alert and oriented and able to answer questions appropriately. Evidence of right hemifacial trauma persist with ecchymoses around the orbit on the right side and subconjunctival hemorrhages both medial and lateral conjunctiva on the right side. Evidence of injury to the right upper extremity with marked bruising from shoulder to elbow. Apparently he has no apparent injuries to his lower extremities still able to walk with the aid of a walker. Plan IV D5 LR at 150 mils per hour. Chest x-ray routine labs for COVID-19 to be done. - Re-Assessments/Exams Free Text/Narrative Re-Assessment/Exam: 03/08/20 10:21 Portable chest x-ray reveals a elevated right hemidiaphragm which is chronic. Heart size upper limits of normal. Lungs appear clear at this point time with no pneumothorax or pleural effusions. 03/08/20 10:44 Hematology reveals a white count of 6.13. Auto differential shows 49% neutrophils. Hemoglobin 14.3 with hematocrit of 39.9. Platelet count low at 128,000. 03/08/20 13:19 Sediment rotation rate is 11. PT is 12.7 with an INR of 1.19. PTT is 27.2 sodium 139 with a potassium low at 3.1. Chloride 101 with a bicarb of 26. Anion gap is 15.1. BUN is 17 with a creatinine of 0.8 and a GFR greater than 60. Glucose 102 with a lactic acid of 1.6. Calcium 8.6 with a magnesium at 1.9. Serum ferritin elevated at 809. Total bilirubin is 1.9 AST is 39 ALT is 42. Alk phos is normal at 74. LDH is normal at 208. Troponin I is less than 0.017. C-reactive protein 0.3. BNP minimally elevated at 271. Total protein 6.4 with an albumin fraction of 3.1. Patient is able to ambulate in his room. I believe that he would benefit from a walker. He wishes to be discharged to home at this time and I see no reason why not. It is unclear what day of illness he is on. He is to self quarantine for another 5 days at a minimum due to COVID-19 illness. Major problem is fatigue from the COVID-19 illness. He has decreased appetite and poor food intake. He is slightly low on serum potassium and I will start him on Slow-K 20 mEq once daily for the next 12 days. Departure - Departure Time of Disposition: 13:22 Disposition: Home, Self-Care 01 Condition: Fair Clinical Impression: COVID-19 determined by clinical diagnostic criteria, Hypokalemia Fatigue Qualifiers: Fatigue type: postviral fatigue syndrome Qualified Code(s): G93.3 - Postviral fatigue syndrome - Discharge Information *PRESCRIPTION DRUG MONITORING PROGRAM REVIEWED*: Not Applicable *COPY OF PRESCRIPTION DRUG MONITORING REPORT IN PATIENT YING: Not Applicable Prescriptions: Potassium Chloride 20 meq PO DAILY #12 tablet.er Instructions: COVID-19 Frequently Asked Questions, COVID-19, Fatigue, Hypokalemia, Weakness, [id number], COVID-19: How to Protect Yourself and Others - CDC, Prevent the Spread of COVID-19 if You Are Sick - [facility] Referrals: Brandon Bar MD [Primary Care Provider] - Forms: ED Department Discharge Additional Instructions: Evaluation in the emergency room today in regards to generalized weakness and fatigue and concern for possible dehydration. Fall 1 week ago with closed head injury and subdural hematoma which apparently is resolving by the time of discharge from hospital in [place]. Diagnosed with COVID-19 illness while in hospital in [place]. Unclear what day illness started. Suggest that you self quarantine for at least another 5 days as we are considered to be shedding the virus for at least 10 days from the time of illness. Chest x-ray is clear at this time with no signs of pneumonia and oxygen levels are normal. Lab test revealed slight decrease in serum potassium level for not eating very well. Suggest potassium supplement 20 mill equivalents of potassium chloride once daily with food. Use this for the next 12 days. Suggest the use of a walker to aid ambulation due to generalized weakness until you recover from COVID-19 illness. Plenty of fluids diet as tolerated. Follow-up with personal care physician in 2 to 3 days time Sepsis Event Note (ED) - Focused Exam Vital Signs: Vital Signs Temp Pulse Resp BP Pulse Ox 03/08/20 09:00 35.8 C L 70 18 178/83 H 100 - My Orders Last 24 Hours: My Active Orders 03/08/20 09:17 EKG Documentation Completion [RC] STAT 03/08/20 09:23 Blood Culture x2 Reflex Set [OM.PC] Stat 03/08/20 09:24 Blood Culture x2 Reflex Set [OM.PC] Stat 03/08/20 09:30 Dextrose 5%-Lactated Ringers 1,000 ml IV ASDIRECTED 03/08/20 09:52 CULTURE BLOOD [BC] Stat 03/08/20 10:05 CULTURE BLOOD [BC] Stat - Assessment/Plan Last 24 Hours: My Active Orders 03/08/20 09:17 EKG Documentation Completion [RC] STAT 03/08/20 09:23 Blood Culture x2 Reflex Set [OM.PC] Stat 03/08/20 09:24 Blood Culture x2 Reflex Set [OM.PC] Stat 03/08/20 09:30 Dextrose 5%-Lactated Ringers 1,000 ml IV ASDIRECTED 03/08/20 09:52 CULTURE BLOOD [BC] Stat 03/08/20 10:05 CULTURE BLOOD [BC] Stat
[2020-03-08] MEDS ORDERED: Dextrose 5%-Lactated Ringers 1,000 ML IV SCH (09:30)
[2020-03-08] MEDS ORDERED: Potassium Chloride 20 MEQ Tab.ER PO ONE (13:26)
--- NOTE | 2020-03-08 13:42 | CR ---
PROCEDURE INFORMATION: Exam: XR Chest, 1 View Exam date and time: 03/08/2020 9:16 AM Age: 85 years old Clinical indication: Cough and dyspnea; Patient HX: Covid TECHNIQUE: Imaging protocol: XR of the chest Views: 1 view. COMPARISON: DX Chest 2V 10/03/2019 12:43 PM FINDINGS: Lungs: There is mild increase in interstitial markings within the lungs. This is nonspecific. No pneumonia or pulmonary edema is present. Pleural space: Unremarkable. No pleural effusion. No pneumothorax. Heart/Mediastinum: Unremarkable. No cardiomegaly. Bones/joints: Unremarkable. IMPRESSION: 1. Mild chronic appearing interstitial change. No acute cardiopulmonary disease identified. Thank you for allowing us to participate in the care of your patient. Dictated and Authenticated by: Mark Baez MD 03/08/2020 10:49 AM Central Time ([place] & [place]) MTDD
== END 2020-03-08 14:15 | disposition home or self-care (01) ==
LOC: SUPCPDRO 08:55 → JD.ED 08:55
DX: U07.1 COVID-19 (principal); E87.6 Hypokalemia; I48.91 Unspecified atrial fibrillation; I10 Essential (primary) hypertension; K21.9 Gastro-esophageal reflux disease without esophagitis; M19.90 Unspecified osteoarthritis, unspecified site; Z79.01 Long term (current) use of anticoagulants; Z79.899 Other long term (current) drug therapy; Z79.82 Long term (current) use of aspirin
CPT/HCPCS: 36415; 71045; 80053; 81001; 82728; 83605; 83615; 83735; 83880; 84484; 85025; 85610; 85652; 85730; 86140; 87040; 93005; 99285; A9270; J7121; 93010; 99284

== ENCOUNTER 2021-07-08 18:09 | Emergency (ER) | payer MEDICARE, OTHER ==
[2021-07-08] MEDS ORDERED: Tenecteplase 50 MG Kit ONE (18:17)
[2021-07-08] MEDS ORDERED: Aspirin 81 MG Tab.Chew PO ONE (18:25)
[2021-07-08] MEDS ORDERED: Sodium Chloride 0.9% 10 ML Syringe FLUSH PRN (18:25)
[2021-07-08] MEDS ORDERED: Sodium Chloride 0.9% 1,000 ML IV SCH (18:30)
[2021-07-08] MEDS ORDERED: Heparin Sodium 5,000 Units/ML Vial IVPUSH ONE (18:56)
[2021-07-08] MEDS ORDERED: Clopidogrel 75 MG Tab PO ONE (18:57)
[2021-07-08] MEDS ORDERED: Heparin Sodium/D5W 500 ML ONE (18:59)
[2021-07-08] MEDS ORDERED: Heparin Sodium 5,000 Units/ML Vial ONE (18:59)
[2021-07-08] MEDS ORDERED: Heparin Sodium/D5W 25,000 UNITS/500 ML BAG IV SCH (19:00)
== END 2021-07-08 19:08 ==
LOC: JD.ED 18:09
DX: I24.9 Acute ischemic heart disease, unspecified (principal); I48.91 Unspecified atrial fibrillation; E78.00 Pure hypercholesterolemia, unspecified; I10 Essential (primary) hypertension; M19.90 Unspecified osteoarthritis, unspecified site; Z79.82 Long term (current) use of aspirin; Z79.899 Other long term (current) drug therapy
CPT/HCPCS: 36415; 71045; 80053; 83880; 84484; 85025; 96374; 99285; A9270; J1644; J7030; 93010; J3490

== ENCOUNTER 2021-08-17 20:03 | Emergency (ER) | payer MEDICARE, OTHER ==
[2021-08-17] MEDS ORDERED: Ondansetron 4 MG/2 ML SDV IVPUSH ONE (21:00)
[2021-08-17] MEDS ORDERED: Sodium Chloride 0.9% 10 ML Syringe FLUSH PRN (21:00)
[2021-08-17] MEDS ORDERED: Sodium Chloride 0.9% 500 ML IV ONE (21:56)
[2021-08-17] MEDS ORDERED: Potassium Chloride 20 MEQ Tab.ER PO ONE (22:01)
== END 2021-08-17 23:33 | disposition home or self-care (01) ==
LOC: JD.ED 20:03
DX: K52.9 Noninfective gastroenteritis and colitis, unspecified (principal); I48.91 Unspecified atrial fibrillation; E78.00 Pure hypercholesterolemia, unspecified; I10 Essential (primary) hypertension; I25.2 Old myocardial infarction; K21.9 Gastro-esophageal reflux disease without esophagitis; Z95.5 Presence of coronary angioplasty implant and graft; Z79.82 Long term (current) use of aspirin; Z79.899 Other long term (current) drug therapy
CPT/HCPCS: 36415; 74018; 80053; 83735; 84484; 85025; 86140; 96374; 99284; A9270; J2405; J3490; J7030

== ENCOUNTER 2023-01-24 23:07 | Emergency (ER) | payer MEDICARE, OTHER ==
[2023-01-24] MEDS ORDERED: Sodium Chloride 0.9% 10 ML Syringe FLUSH PRN (23:32)
[2023-01-24 23:48] LABS: BASOPHILS ABSOLUTE AUTO 0.1 K/mm3 (0.0-0.2); BASOPHILS PERCENT AUTO 0.4 % (0.0-1.0); EOSINOPHILS ABSOLUTE AUTO 0.1 K/mm3 (0.0-0.4); EOSINOPHILS PERCENT AUTO 0.9 % (0.0-6.0); HEMATOCRIT 41.7 % (42.0-52.0); HEMOGLOBIN 14.3 gm/dl (14.0-18.0); IMMATURE GRAN ABSOLUTE AUTO 0.06 K/mm3 (0.00-0.05); IMMATURE GRAN PERCENT AUTO 0.4 % (0.0-0.4); LYMPHOCYTES ABSOLUTE AUTO 1.8 K/mm3 (1.0-4.8); MEAN CORPUSCULAR HEMOGLOBIN 32.1 pg (28.0-32.0); MEAN CORPUSCULAR HGB CONC 34.3 g/dl (32.0-36.0); MEAN CORPUSCULAR VOLUME 93.5 fl (83.0-99.0); MEAN PLATELET VOLUME 10.6 fl (9.4-12.4); MONOCYTES PERCENT AUTO 7.5 % (0.0-8.0); NEUTROPHILS ABSOLUTE AUTO 10.5 K/mm3 (1.8-7.7); NEUTROPHILS PERCENT AUTO 77.8 % (41.0-71.0); PLATELET COUNT,PLT 146 K/mm3 (150-400); RED BLOOD CELL COUNT 4.46 M/mm3 (4.52-5.90); WHITE BLOOD CELL COUNT,WBC 13.51 K/mm3 (3.9-11.3)
[2023-01-25 00:11] LABS: ANION GAP 13.4 (5-15); BILIRUBIN TOTAL 0.7 mg/dL (0.2-1.0); BUN/CREATININE RATIO 21.1 (14-18); CALCIUM 8.3 mg/dL (8.5-10.1); CREATININE 0.9 mg/dL (0.7-1.3); EST CRCL DRUG DOSING (CG) 56.41 mL/min; MAGNESIUM 1.4 mg/dL (1.8-2.4); POTASSIUM,K 3.4 mEq/L (3.5-5.1); PROTEIN TOTAL,TP 6.1 g/dl (6.4-8.2)
[2023-01-25] MEDS ORDERED: Sodium Chloride 0.9% 500 ML IV ONE (00:21)
[2023-01-25 00:57] LABS: APPEARANCE,URINE CLEAR (Clear); BILIRUBIN,URINE NEGATIVE (Negative); COLOR,URINE YELLOW (Yellow); GLUCOSE,URINE NEGATIVE (Negative); KETONES,URINE 1+ (Negative); LEUKOCYTE ESTERASE,URINE NEGATIVE (Negative); NITRITE,URINE NEGATIVE (Negative); OCCULT BLOOD,URINE NEGATIVE (Negative); PH,URINE 6.5 (5.0-8.0); PROTEIN,URINE 1+ (Negative)
[2023-01-25 01:14] LABS: BACTERIA,URINE FEW /hpf (FEW); EPITHELIAL CELLS,URINE 0-5 /hpf (0-5); FINE GRANULAR CASTS,URINE 0-5 /lpf (0-5); HYALINE CASTS,URINE 0-5 /lpf (0-5); RBC,URINE 0-5 /hpf (0-5); WBC,URINE 0-5 /hpf (0-5)
[2023-01-25 01:15] LABS: AMORPHOUS SEDIMENT,URINE FEW /hpf (NOT SEEN); MUCUS,URINE MODERATE /hpf (FEW)
== END 2023-01-25 01:57 | disposition home or self-care (01) ==
LOC: JD.ED 23:07
DX: E86.0 Dehydration (principal); E83.42 Hypomagnesemia; E83.51 Hypocalcemia; F03.90 Unspecified dementia, unspecified severity, without behavioral disturbance, psychotic disturbance, mood disturbance, and anxiety; I48.91 Unspecified atrial fibrillation; I10 Essential (primary) hypertension; E78.00 Pure hypercholesterolemia, unspecified; I25.2 Old myocardial infarction; K21.9 Gastro-esophageal reflux disease without esophagitis; M19.90 Unspecified osteoarthritis, unspecified site; Z86.16 Personal history of COVID-19; Z79.899 Other long term (current) drug therapy; Z79.82 Long term (current) use of aspirin; Z79.02 Long term (current) use of antithrombotics/antiplatelets
CPT/HCPCS: 36415; 71046; 80053; 81001; 83735; 85025; 96365; 99285; J3475; J3490; J7030